=== PATIENT | female | born 1980 | race African-American/Black ===

== ENCOUNTER 2021-08-17 11:55 | Emergency (ER) | payer MEDICAID ==
[~2021-08-17] VITALS: Ht 157.5 cm; Wt 73.0 kg
[2021-08-17 12:09] VITALS: BP 146/92
[2021-08-17] MEDS ORDERED: FLUT16SP21 NS (12:41)
[2021-08-17] MEDS ORDERED: CETI10TA16 PO (12:41)
[2021-08-17] MEDS ORDERED: GUAI400T78 PO (12:41)
--- NOTE | 2021-08-17 12:42 | PHYS DOC ---
Past History Past Surgical History: Other Additional Past Surgical Histo: Lap (SALIMA MARTINEZ) Alcohol Use: Occasionally (SALIMA MARTINEZ) General Adult EDM: Chief Complaint: CONGESTION HPI: HPI: Patient is a 41 year old female who presents with sneezing and congestion that began 2 days ago. Patient states she is visiting family from [place], and she is seeking evaluation as her young niece "cannot be around anyone who is sick." Patient states that when the weather changed abruptly the other day, she sneezed "really hard" several times in a row, and then noticed that her nose was swollen inside. She states that her dad was having allergy problems as well, so she attributed the symptoms to allergies. Patient states she used to be on allergy medication prescribed by her primary doctor, but she ran out and never got more. Patient denies "feeling sick." She denies fever, chills, generalized weakness, sore throat, shortness of breath or difficulty breathing. (SALIMA MARTINEZ) Review of Systems: Review of Systems: Constitutional: See HPI Eyes: Denies change in visual acuity, visual field deficits or discharge HENT: See HPI Respiratory: See HPI Cardiovascular: Denies chest pain, palpitations or edema GI: Denies abdominal pain, nausea, vomiting, bloody stools or diarrhea : Denies dysuria or hematuria Musculoskeletal: Denies back pain or joint pain Integument: Denies rash or other skin lesion Neurologic: Denies headache, focal weakness or sensory changes (SALIMA MARTINEZ) Allergies: Allergies: Allergies Coded Allergies Type Severity Reaction Last Updated Verified sulfamethoxazole Allergy Unknown 08/17/21 Yes trimethoprim Allergy Unknown 08/17/21 Yes (SALIMA MARTINEZ) Physical Exam: PE: Constitutional: Well developed, well nourished, no acute distress, non-toxic appearance. HENT: Normocephalic, atraumatic, bilateral external ears no deformity or discharge, oropharynx moist, no oral exudates, external nose without deformity or discharge, bilateral turbinates swollen and boggy. Eyes: EOMI, conjunctiva normal, no discharge. Neck: Normal range of motion, no tenderness, supple, no stridor. Skin: Warm, dry, no erythema, no rash. Neurologic: Alert and oriented x4, no focal deficits noted. (SALIMA MARTINEZ) Current Patient Data: Vital Signs: Vital Signs Date Time Temp Pulse Resp B/P (MAP) Pulse Ox O2 Delivery O2 Flow Rate FiO2 08/17/21 12:09 97.5 99 16 146/92 (110) 95 Room Air (SALIMA MARTINEZ) Heart Score: C/O Chest Pain: No (SALIMA MARTINEZ) C/O Chest Pain: N/A (LORENA PEREZ DO) Course & Med Decision Making: Course & Med Decision Making Pertinent Labs and Imaging studies reviewed. (See chart for details) Patient is a 41-year-old female who presents with what appears to be allergic rhinitis. Patient was counseled on supportive treatment measures. Return precautions were provided. Patient understands and is agreeable to discharge plan. (SALIMA MARTINEZ) Course & Med Decision Making Patients Care and treatment plan provided by RICHARD MUÑIZ. I was available for consult. Patient's chart reviewed. (LORENA PEREZ DO) Dragon Disclaimer: [place] Disclaimer: This electronic medical record was generated, in whole or in part, using a voice recognition dictation system. (SALIMA MARTINEZ) Departure Departure: Impression: Primary Impression: Rhinitis Qualified Codes: J30.1 - Allergic rhinitis due to pollen Additional Impression: Elevated blood pressure reading Disposition: 01 HOME / SELF CARE / HOMELESS Condition: STABLE Referrals: [facility] (PCP) Patient Instructions: Allergic Rhinitis Additional Instructions: EMERGENCY DEPARTMENT GENERAL DISCHARGE INSTRUCTIONS Thank you for coming to [facility] (ED) today and trusting us with you care. We trust that you had a positive experience in our Emergency Department. If you wish to speak to the department management, you may call the director at [phone]. YOUR FOLLOW UP INSTRUCTIONS ARE FOLLOWS: 1. Follow up with your primary care doctor. If you do not have a primary doctor, please ask for a resource list of physicians or clinics that may be able to assist you with follow up care. They can address any issues with blood p ressure if needed. 2. The emergency provider has interpreted your imaging studies, if any were ordered. The radiology project/production manager imaging also reviewed them. If there is a change in the findings, you will be notified in 48 hours when at all possible. 3. If a lab test or culture has been done, your results will be reviewed and you will be notified if you need a change in treatment. 4. Follow instructions verbalized to you and refer to the printouts if needed. ADDITIONAL INSTRUCTIONS AND INFORMATION: 1. Your care today has been supervised by a physician who is specially trained in emergency care. Many problems require more than one evaluation for a complete diagnosis and treatment. We recommend that you schedule your follow up appointment as recommended to ensure complete treatment of you illness or injury. If you are unable to obtain follow up care and continue to have a prob alli, or if your condition worsens, we recommend that you return to the ED. 2. We are not able to safely determine your condition over the phone nor are we able to give sound medical advice over the phone. For these safety reasons, if you call for medical advice we will ask you to come to the ED for further evaluation. 3. If you have any questions regarding these discharge instructions please call the ED at [phone]. SAFETY INFORMATION: In the interest of safety, wellness, and injury prevention; we encourage you to wear your seat belt, if you smoke; quite smoking, and we encourage family to use a protective helmet for bicycling and other sporting events that present an increased risk for head injury. IF YOUR SYMPTOMS WORSEN OR NEW SYMPTOMS DEVELOP, OR YOU HAVE CONCERNS ABOUT YOUR CONDITION; OR IF YOUR CONDITION WORSENS WHILE YOU ARE WAITING FOR YOUR FOLLOW UP APPOINTMENT; EITHER CONTACT YOUR PRIMARY CARE DOCTOR, THE PHYSICIAN WHOSE NAME AND NUMBER YOU WERE GIVEN, OR RETURN TO THE ED IMMEDIATELY. Scripts Guaifenesin (GUAIFENESIN) 400 Mg Tablet 1 TAB PO TID for cough for 7 Days, #21 TAB 0 Refills Prov: SALIMA MARTINEZ 08/17/21 Cetirizine Hcl (CETIRIZINE HCL) 10 Mg Tablet 1 TAB PO DAILY for allergies, #30 TAB 0 Refills Prov: SALIMA MARTINEZ 08/17/21 Fluticasone Propionate (FLUTICASONE PROPIONATE NASAL SPRAY) 16 Gm [place].susp 2 SPR NS DAILY for rhinitis, #1 INHALER 11 Refills Prov: SALIMA MARTINEZ 08/17/21 SALIMA MARTINEZ Aug 17, 2021 12:41 LORENA PEREZ I DO Aug 23, 2021 00:54
== END 2021-08-17 12:56 | disposition home or self-care (01) ==
LOC: ER 11:55
DX: J30.1 Allergic rhinitis due to pollen (principal); R03.0 Elevated blood-pressure reading, without diagnosis of hypertension; Z88.1 Allergy status to other antibiotic agents; Z88.2 Allergy status to sulfonamides
CPT/HCPCS: 99282